=== PATIENT | female | born 1950 | race Caucasian/White ===

== ENCOUNTER 2016-09-06 06:13 | Emergency (ER) | payer BC ==
[2016-09-06 06:28] VITALS: BP 149/81
--- NOTE | 2016-09-06 07:35 | ED ---
Lower Extremity - HPI Summary HPI Summary: Pt here w/ Lt knee pain - acute on chronic. Was walking down the stairs and when she stepped onto the ground (uneven surface), her knee went out and she heard a snapping. Pain is worse w/ weight bearing, straightening - better w/ rest and some degree of flexion. Denies numbness, tingling, weakness. H/o meniscal injury here - has been fine since w/o surgery. No known arthritis. No recent anbx or steroids. Unsure if she has osteoporosis. - History of Current Complaint Chief Complaint: EDExtremityLower Stated Complaint: LEFT KNEE PAIN Time Seen by Provider: 09/06/16 07:27 Hx Obtained From: Patient Hx Last Menstrual Period: n/a Pain Intensity: 7 - Allergies/Home Medications Allergies/Adverse Reactions: Allergies Allergy/AdvReac Type Severity Reaction Status Date / Time No Known Allergies Allergy Verified 09/06/16 06:27 PMH/Surg Hx/FS Hx/Imm Hx Previously Healthy: Yes Endocrine/Hematology History: Reports: Hx Diabetes - Type 2 Denies: Hx Anticoagulant Therapy, Hx Thyroid Disease Cardiovascular History: Reports: Hx Hypercholesterolemia, Hx Hypertension - ON MEDICATION Denies: Hx Pacemaker/ICD Respiratory History: Reports: Hx Asthma - Mild asthma Denies: Hx Chronic Obstructive Pulmonary Disease (COPD) History: Denies: Hx Renal Disease Musculoskeletal History: Reports: Other Musculoskeletal History - chronic Lt knee pain of unknown etiology; h/o partial tear here? Sensory History: Reports: Hx Cataracts - HX, Hx Contacts or Glasses - GLASSES Denies: Hx Hearing Aid Opthamlomology History: Reports: Hx Cataracts - HX, Hx Contacts or Glasses - GLASSES Neurological History: Denies: Hx Dementia, Hx Seizures Psychiatric History: Denies: Hx Substance Abuse - Cancer History Cancer Type, Location and Year: MELANOMA - Surgical History Surgery Procedure, Year, and Place: BILATERAL TUBAL LIGATION, [place]. 1979' TOTAL VAGINAL HYSTERECTOMY,. 1982 EXCISION OF MELANOMA FROM BACK,. [place] [facility] [place] LEFT EYE CATARACT EXTRACTION WITH IOL IMPLANT, Hx Anesthesia Reactions: No Infectious Disease History: No Infectious Disease History: Denies: Hx Hepatitis, Hx Human Immunodeficiency Virus (HIV), Traveled Outside the [place] in Last 30 Days - Family History Known Family History: Positive: None - Social History Occupation: Employed Full-time - RN in labor and delivery Lives: With Family Alcohol Use: None Hx Substance Use: No Substance Use Type: Reports: None Hx Tobacco Use: No Smoking Status (MU): Never Smoked Tobacco Review of Systems Negative: Fever, Chills Negative: Chest Pain Negative: Shortness Of Breath Negative: Vomiting, Nausea Positive: no symptoms reported Musculoskeletal: Other - see HPI Negative: Bruising Neurological: Negative Negative: Weakness, Paresthesia, Numbness Psychological: Normal All Other Systems Reviewed And Are Negative: Yes Physical Exam Triage Information Reviewed: Yes Vital Signs On Initial Exam: Initial Vitals Temp Pulse Resp BP Pulse Ox 98.2 F 78 15 149/81 98 09/06/16 06:24 09/06/16 06:24 09/06/16 06:24 09/06/16 06:24 09/06/16 06:24 Vital Signs Reviewed: Yes Appearance: Positive: Well-Appearing, No Pain Distress - pt lying in bed w/ Lt knee flexed - reports she's comfortable in this position, Obese Skin: Positive: Warm, Dry - no erythema, no ecchymosis, no fever to touch affected area Head/Face: Positive: Normal Head/Face Inspection Eyes: Positive: Normal, EOMI, Conjunctiva Clear ENT: Positive: Hearing grossly normal, Pharynx normal Respiratory/Lung Sounds: Positive: Breath Sounds Present Cardiovascular: Positive: Normal, Pulses are Symmetrical in both Upper and Lower Extremities Musculoskeletal: Positive: Strength/ROM Intact - pain w/ end range extension, Other - neg anterior/post drawer tests; neg hernandez's; no joint line tenderness ; neg valgus/verum; pain w/ modified McMurrarys. Negative: Edema Left, Edema Right Neurological: Positive: Normal, Sensory/Motor Intact, Alert, Oriented to Person Place, Time Psychiatric: Positive: Normal Diagnostics - Vital Signs Vital Signs Temp Pulse Resp BP Pulse Ox 09/06/16 06:24 98.2 F 78 15 149/81 98 - Laboratory Lab Statement: Any lab studies that have been ordered have been reviewed, and results considered in the medical decision making process. Lower Extremity Course/Dx - Course Course Of Treatment: Offered pt pain medication -she declines as she's comfortable in flexed position. Discussed importance of NWB via use of cructhes which she has at home and advised f/u w/ Othro - she does not want immobilizer d /t discomfort w/ extension. Suspect arthritis flair up with possible meniscal injury. No laxity and N/V intact so okay w/ pt d/c'd w/o immobilization. She cannot take NSAID'S w/ lisinopril - offered acetaminophen and topical analgesics for pain relief as needed and further discussion about tx w/ eval by ortho. Reviewed danger s/sx of return to ED. - Diagnoses Provider Diagnoses: Knee pain, left, Tricompartment osteoarthritis of left knee Discharge - Discharge Plan Condition: Stable Disposition: HOME Patient Education Materials: Crutch Instructions (ED), Osteoarthritis (ED), Knee Pain (ED) Forms: *Work Release Referrals: Emelina Cancino MD [Medical Doctor] - Additional Instructions: You have acute knee pain. This could be an arthritis flair up. However, your clinical exam is suspicious for meniscal injury. It is advised that you use crutches and weight bear as tolerated only. You may rest, ice, elevate and take acetaminophen for pain control - NSAID's should be avoided as they can interfere with your blood pressure medication. Follow-up with orthopedics. Call today to schedule an appointment. Contact information included here.
--- NOTE | 2016-09-06 08:40 | RAD ---
INDICATION: Acute on chronic left knee pain COMPARISON: None TECHNIQUE: AP, lateral, tunnel, and sunrise views were obtained. FINDINGS: There is mild condylar spurring and spurring tibial spines. There is minor patellofemoral spurring. There is patellofemoral joint space narrowing. There is no effusion. IMPRESSION: MILD TO MODERATE TRICOMPARTMENTAL OSTEOARTHRITIS
== END 2016-09-06 09:37 | disposition home or self-care (01) ==
LOC: ED 06:13
DX: M17.12 Unilateral primary osteoarthritis, left knee (principal); M25.562 Pain in left knee
CPT/HCPCS: 99281

== ENCOUNTER 2019-03-03 09:19 | Emergency (ER) | payer MEDICARE ==
[2019-03-03 09:53] VITALS: BP 140/79
[2019-03-03] MEDS ORDERED: DOXYcycline CAP(*) 100 MG PO ONE (09:57)
--- NOTE | 2019-03-03 09:59 | ED ---
Bite Injury/Animal - HPI Summary HPI Summary: 69 yr old with tick bite. Took tick off last night. Was not engorged. Doesn' t know length time attached. No other complaints. Localized irritation is mild. - History of Current Complaint Chief Complaint: UCBiteInjury Stated Complaint: TICK BITE Time Seen by Provider: 03/03/19 09:57 Hx Last Menstrual Period: n/a Pain Intensity: 0 - Allergies/Home Medications Allergies/Adverse Reactions: Allergies Allergy/AdvReac Type Severity Reaction Status Date / Time No Known Allergies Allergy Verified 03/03/19 09:46 Home Medications: Home Medications Insulin GLARGINE(*) [Lantus(*)] 80 units SUBCUT QPM 03/03/19 [History Confirmed 03/03/19] Lisinopril 20 mg PO QPM 03/03/19 [History Confirmed 03/03/19] Lisinopril 40 mg PO QAM 03/03/19 [History Confirmed 03/03/19] [place]-3S/Dha/Epa/Fish Oil [Fish Oil 1,200 mg Softgel] 1 each PO BEDTIME [History Confirmed 03/03/19] metFORMIN* [Glucophage 1000 MG TAB *] 1,000 mg PO BID 03/03/19 [History Confirmed 03/03/19] PMH/Surg Hx/FS Hx/Imm Hx Endocrine/Hematology History: Reports: Hx Diabetes Denies: Hx Anticoagulant Therapy, Hx Thyroid Disease Cardiovascular History: Reports: Hx Hypercholesterolemia, Hx Hypertension Denies: Hx Pacemaker/ICD Respiratory History: Reports: Hx Asthma Denies: Hx Chronic Obstructive Pulmonary Disease (COPD) History: Denies: Hx Renal Disease Musculoskeletal History: Reports: Other Musculoskeletal History - chronic Lt knee pain of unknown etiology; h/o partial tear here? Sensory History: Reports: Hx Cataracts - HX, Hx Contacts or Glasses - GLASSES Denies: Hx Hearing Aid Opthamlomology History: Reports: Hx Cataracts - HX, Hx Contacts or Glasses - GLASSES Neurological History: Denies: Hx Dementia, Hx Seizures Psychiatric History: Denies: Hx Panic Disorder, Hx Substance Abuse - Cancer History Cancer Type, Location and Year: MELANOMA - Surgical History Surgery Procedure, Year, and Place: BILATERAL TUBAL LIGATION, [place]. 1979' TOTAL VAGINAL HYSTERECTOMY,. 1982 EXCISION OF MELANOMA FROM BACK,2016 MELANOMA REMOVED RIGHT FOREARM. 2010 BilateralEYE CATARACT EXTRACTION WITH IOL IMPLANT, [facility] – [place]. 2013 LEFT EYE CATARACT EXTRACTION WITH IOL IMPLANT, Hx Anesthesia Reactions: No Infectious Disease History: No Infectious Disease History: Denies: Hx Hepatitis, Hx Human Immunodeficiency Virus (HIV), Traveled Outside the [place] in Last 30 Days - Family History Known Family History: Positive: None, Hypertension, Diabetes - Social History Alcohol Use: None Hx Substance Use: No Substance Use Type: Reports: None Hx Tobacco Use: No Smoking Status (MU): Never Smoked Tobacco Review of Systems Constitutional: Negative Positive: Other - tick bite All Other Systems Reviewed And Are Negative: Yes Physical Exam Triage Information Reviewed: Yes Vital Signs On Initial Exam: Initial Vitals Temp Pulse Resp BP Pulse Ox 97.7 F 66 16 140/79 98 03/03/19 09:42 03/03/19 09:42 03/03/19 09:42 03/03/19 09:42 03/03/19 09:42 Vital Signs Reviewed: Yes Appearance: Positive: Well-Appearing, No Pain Distress Skin: Positive: Warm, Skin Color Reflects Adequate Perfusion, Other - tick bite upper back to the left side about the level of t-8, Minimal redness about 0.5 cm. No bulls eye. No erythema migrans Head/Face: Positive: Normal Head/Face Inspection Eyes: Positive: EOMI Neck: Positive: Nontender Respiratory/Lung Sounds: Positive: Clear to Auscultation, Breath Sounds Present Cardiovascular: Positive: RRR. Negative: Murmur Abdomen Description: Negative: Distended Musculoskeletal: Positive: Strength/ROM Intact Neurological: Positive: Sensory/Motor Intact, Alert, Oriented to Person Place, Time, CN Intact II-III, Normal Gait, Speech Normal Psychiatric: Positive: Normal Diagnostics - Vital Signs Vital Signs Temp Pulse Resp BP Pulse Ox 03/03/19 09:42 97.7 F 66 16 140/79 98 - Laboratory Lab Statement: Any lab studies that have been ordered have been reviewed, and results considered in the medical decision making process. Bite Injury Course/Dx - Course Course Of Treatment: 69 yr old with tick bite. Doxy 200 given here. - Diagnoses Provider Diagnosis: Tick bite, Hypertension Discharge ED - Sign-Out/Discharge Documenting (check all that apply): Patient Departure All imaging exams completed and their final reports reviewed: No Studies - Discharge Plan Condition: Good Disposition: HOME Patient Education Materials: Tick Bite (ED), Hypertension (ED) Referrals: Daniel Ludwig MD [Primary Care Provider] - 2 Days - Billing Disposition and Condition Condition: GOOD Disposition: Home
== END 2019-03-03 10:01 | disposition home or self-care (01) ==
LOC: UCCORT 09:19
DX: S20.462A Insect bite (nonvenomous) of left back wall of thorax, initial encounter (principal); I10 Essential (primary) hypertension; E11.9 Type 2 diabetes mellitus without complications; J45.909 Unspecified asthma, uncomplicated; M25.562 Pain in left knee; G89.29 Other chronic pain; Z79.899 Other long term (current) drug therapy; Z79.4 Long term (current) use of insulin; W57.XXXA Bitten or stung by nonvenomous insect and other nonvenomous arthropods, initial encounter; Y92.9 Unspecified place or not applicable
CPT/HCPCS: 99212; A9270-GY; G0463